=== PATIENT | male | born 1975 | race Caucasian/White ===

== ENCOUNTER 2016-11-02 05:00 | Emergency (ER) | payer OTHER ==
[~2016-11-02] VITALS: Ht 172.7 cm; Wt 93.0 kg
[2016-11-02 05:10] VITALS: BP 173/88
--- NOTE | 2016-11-02 05:18 | NUR ---
PT TAKEN TO BED 8
[2016-11-02] MEDS ORDERED: NACL 0.9% 1,000 ML IV SCH (05:19)
[2016-11-02] MEDS ORDERED: ONDANSETRON 4 MG/2 ML VIAL IVP ONE (05:20)
--- NOTE | 2016-11-02 05:20 | NUR ---
PATIENT PRESENTS TO ED WITH C/O AB PAIN AND VOMITING SINCE 0200 THIS MORNING . PT DENIES N/D; SKIN IS PINK/WARM/DRY; AAOX4 WITH EVEN AND STEADY GAIT; LUNGS CLEAR BL; HR EVEN AND REGULAR; PT DENIES ANY FEVER, CP, SOB, OR COUGH AT THIS TIME; VSS; PATIENT POSITIONED FOR COMFORT; HOB ELEVATED; BEDRAILS UP X2; BED DOWN. ER MD MADE AWARE OF PT STATUS.
[2016-11-02 05:45] LABS: HEMATOCRIT 46.2 % (36-52); HEMOGLOBIN 15.8 g/dL (12.0-18.0); MEAN CORPUSCULAR HEMOGLOBIN 30 pg (27-31); MEAN CORPUSCULAR HGB CONC 34 g/dL (33-37); MEAN CORPUSCULAR VOLUME 88 fL (80-94); PLATELET COUNT (AUTO) 236 K/uL (140-450); RED BLOOD CELL COUNT(AUTO) 5.26 MIL/uL (4.20-6.10); RED CELL DISTRIBUTION WIDTH 12.2 % (11.6-13.7); WHITE BLOOD COUNT (AUTO) 13.3 K/uL (4.8-10.8)
[2016-11-02 05:57] LABS: ANION GAP 15.6 (8-16); CARBON DIOXIDE 27.3 mmol/L (21-32); POTASSIUM 3.9 mmol/L (3.5-5.1)
--- NOTE | 2016-11-02 06:01 | NUR ---
Dr. Dee evaluating patient at bedside.
[2016-11-02 06:02] LABS: ALBUMIN 4.6 g/dL (3.4-5.0); TOTAL BILIRUBIN 1.1 mg/dL (0.0-1.0)
[2016-11-02 06:10] LABS: LYMPHOCYTES % (MANUAL) 14 % (20-46); MONOCYTES % (MANUAL) 5 % (5-12)
[2016-11-02] MEDS ORDERED: KETOROLAC 30 MG/ML VIAL IVP ONE (06:15)
[2016-11-02] MEDS ORDERED: PROMETHAZINE 25 MG/ML VIAL IVP ONE (06:15)
--- NOTE | 2016-11-02 06:50 | NUR ---
IV removed, catheter intact and site benign. Applied folded 4x4 gauze and tape to stop bleeding.
[2016-11-02 06:58] VITALS: BP 142/86
--- NOTE | 2016-11-02 06:58 | NUR ---
Patient discharged with v/s stable. Written and verbal after care instructions given and explained. Patient alert, oriented and verbalized understanding of instructions. Ambulatory with steady gait. All questions addressed prior to discharge. ID band removed. Patient advised to follow up with PMD. Rx of PHENERGAN 25MG, IMODIUM A-D, MOTRIN 800MG given. Patient educated on indication of medication including possible reaction and side effects. Opportunity to ask questions provided and answered.
== END 2016-11-02 06:58 | disposition home or self-care (01) ==
LOC: MED 05:00
DX: R19.7 Diarrhea, unspecified (principal); R11.2 Nausea with vomiting, unspecified; R10.13 Epigastric pain; R50.9 Fever, unspecified; E11.9 Type 2 diabetes mellitus without complications
CPT/HCPCS: 36415; 80053; 81002; 83690; 85025; 96374; 96375; 99284; J1885; J2405; J2550; J7030